=== PATIENT | male | born 1955 | race Caucasian/White ===

== ENCOUNTER → 2018-10-11 | Outpatient (CLI) | payer OTHER ==
--- NOTE | 2018-10-11 11:34 | REP ---
CERVICAL SPINE, SEVEN VIEWS: HISTORY: Radiculopathy. There is no acute fracture or subluxation. The C2-3 and C4-5 through C6-7 intervertebral discs are decreased in height consistent with disc degeneration. Osteophytes are present on C3 through C7. There is narrowing of the right C5 and C6 and left C6 neural foramina secondary to uncinate process hypertrophy. IMPRESSION: Degenerative change as described above.
== END ==
LOC: M CLY 10:26
PROVIDERS: ATTEND Chiropractor
DX: M50.31 Other cervical disc degeneration, high cervical region (principal); M50.321 Other cervical disc degeneration at C4-C5 level; M50.323 Other cervical disc degeneration at C6-C7 level; M25.78 Osteophyte, vertebrae

== ENCOUNTER → 2025-04-03 | Outpatient (CLI) | payer MEDICARE, OTHER ==
[2025-04-03 12:15] VITALS: TEMP 97.9
[2025-04-03 12:35] LABS: PLATELET COUNT, AUTOMATED 233 10^3/uL (150-450)
[2025-04-03 13:09] LABS: INR 0.97
[2025-04-03 15:15] VITALS: BP 145/76; O2SAT 97
[2025-04-03] MEDS: LIDOCAINE 1% MDV 20 ML VIAL SC ONE (16:16)
== END ==
LOC: M IRPRO 12:04
PROVIDERS: ATTEND Internal Medicine Gastroenterology
DX: K76.0 Fatty (change of) liver, not elsewhere classified (principal); E66.9 Obesity, unspecified; E78.5 Hyperlipidemia, unspecified; G45.9 Transient cerebral ischemic attack, unspecified